=== PATIENT | female | born 1995 | race African-American/Black ===

== ENCOUNTER 2018-09-15 05:00 | Inpatient (IN) ==
[2018-09-15] MEDS ORDERED: ONDANSETRON 4 MG/2 ML VIAL IV PRN (05:20)
[2018-09-15] MEDS ORDERED: OXYTOCIN/LR 20 UNIT/1,000 ML BAG IV PRN (05:21)
[2018-09-15] MEDS: LACTATED RINGERS 1,000 ML IV SCH ×4 (05:32→22:35)
[2018-09-15] MEDS: BUTORPHANOL 2 MG/ML VIAL IV PRN ×2 (05:40→11:12)
[2018-09-15 05:59] LABS: Basophils % 0.2 % (0.0-0.8); Eosinophils % 0.5 % (0.00-10.9); Hematocrit 28.7 VOL% (35.7-47.0); Hemoglobin 8.7 GM/DL (12.0-16.0); Immature Granulocytes % 0.5 %; Immature Granulocytes Absolute 0.04 #; Lymphocytes # 2.7 10*3/uL (1.4-4.0); Lymphocytes % 30.4 % (21.3-54.2); Mean Corpuscular HGB Conc 30.3 GM/DL (32-36); Mean Corpuscular Hemoglobin 24 PG (27-34); Mean Corpuscular Volume 78.2 FL (87-102); Mean Platelet Volume 13.6 FL (9.6-12.0); Monocytes # 0.7 10*3/uL (0.11-0.8); Monocytes % 8.5 % (1.7-12.7); Neutrophils # 5.2 10*3/uL (1.4-7.4); Neutrophils % 59.9 % (38.7-73.9); Platelet Count 186 T/CUMM (130-400); Red Blood Count 3.67 MC/CUMM (3.8-5.5); Red Cell Distribution Width 14.5 % (9.3-17.3); White Blood Count 8.7 T/CUMM (4-12)
[2018-09-15 06:17] LABS: Albumin 2.9 G/DL (3.4-5.0); Bilirubin,Total 0.7 MG/DL (0.2-1.0); Calcium 8.1 MG/DL (8.5-10.1); Osmolality,Calculated 273.5 MOS/KG (273-304); Potassium 3.2 MMOL/L (3.5-5.1); Total Protein 7.3 G/DL (6.4-8.3)
[2018-09-15] MEDS ORDERED: FAMOTIDINE 20 MG/2 ML VIAL IV ONE (09:27)
[2018-09-15] MEDS ORDERED: CITRIC ACID/SODIUM CITRATE 30 ML UDCUP PO ONE (09:27)
[2018-09-15] MEDS ORDERED: hydrOXYzine HCL 25 MG/1 ML VIAL IM PRN (09:27)
[2018-09-15] MEDS ORDERED: ePHEDrine 50 MG/ML AMP IV PRN (09:27)
[2018-09-15] MEDS ORDERED: NALOXONE 0.4 MG/ML VIAL IV PRN (09:27)
[2018-09-15] MEDS ORDERED: PROMETHAZINE 25 MG/1 ML VIAL IM ONE (09:27)
[2018-09-15] MEDS ORDERED: diphenhydrAMINE 50 MG/1 ML VIAL IV PRN ×2 (09:27)
[2018-09-15] MEDS ORDERED: fentaNYL 2 MCG/ROPIV 0.2% EPID 100 ML EPIDURAL SCH (09:30)
[2018-09-15 12:30] LABS: Apearance,Urine CLEAR (Clear); Bilirubin,Urine Negative (Negative); Blood, Urine Negative (Negative); Glucose,Urine (UA) Negative (Negative); Ketones,Urine 5 mg/dL (Negative); Mucus,Urine Occasional /LPF (Occasional); Nitrite,Urine Negative (Negative); Protein,Urine Negative; Urine Color Yellow (Yellow); Urine Specific Gravity 1.009 (1.001-1.035)
[2018-09-15 12:35] LABS: Barbiturates Screen,Urine Negative (Negative); Benzodiazepines Screen,Urine Negative (Negative); Cannabinoid Screen,Urine Negative (Negative); Opiate Screen,Urine Negative (Negative); Phencyclidine Screen,Urine Negative (Negative)
[2018-09-15] MEDS ORDERED: miSOPROStol 200 MCG TABLET ONE (13:43)
[2018-09-15] MEDS ORDERED: LIDOCAINE 1% 50 ML VIAL ONE (13:43)
[2018-09-15] MEDS ORDERED: METHYLERGONOVINE 0.2 MG/1 ML AMP ONE (13:43)
[2018-09-15 14:04] LABS: Cord Venous Blood PO2 26.3 MMHG
[2018-09-15] MEDS ORDERED: ACETAMINOPHEN 325 MG TABLET PO SCH (17:09)
[2018-09-15] MEDS ORDERED: WITCH HAZEL PADS 100/JAR TOP PRN (17:09)
[2018-09-15] MEDS ORDERED: BENZOCAINE 20%/MENTHOL 0.5% SPRAY 56 GM CAN TOP PRN (17:09)
[2018-09-15] MEDS ORDERED: LANOLIN 50% CREAM 0.3 OZ TUBE TOP PRN (17:09)
[2018-09-15] MEDS ORDERED: MEASLES/MUMPS/RUBELLA VACCINE 0.5 ML VIAL SUBCUT ONE (17:09)
[2018-09-15] MEDS ORDERED: HYDROCORTISONE 2.5% RECTAL CREAM 30 GM TUBE TOP PRN (17:09)
[2018-09-15] MEDS ORDERED: RHO(D) IMMUNE GLOBULIN 300 MCG SYRINGE IM ONE (17:09)
[2018-09-15] MEDS ORDERED: DIPH/TET/ACEL PERT BOOSTER VACCINE 0.5 ML VIAL IM ONE (17:09)
[2018-09-15] MEDS ORDERED: BISACODYL 10 MG SUPP RECTAL PRN (17:09)
[2018-09-15] MEDS: KETOROLAC 30 MG/1 ML VIAL IV SCH ×2 (17:48→23:24)
[2018-09-15] MEDS: DOCUSATE SODIUM 100 MG CAPSULE PO SCH (21:09)
[2018-09-15] MEDS: FERROUS SULFATE 300 MG/5 ML UDCUP PO SCH (23:15)
[2018-09-15] MEDS: ACETAMINOPHEN 325 MG/10.15 ML UDCUP PO SCH (23:16)
[2018-09-16 06:06] LABS: Basophils % 0.2 % (0.0-0.8); Eosinophils % 0.2 % (0.00-10.9); Hematocrit 24.8 VOL% (35.7-47.0); Hemoglobin 7.6 GM/DL (12.0-16.0); Immature Granulocytes % 0.8 %; Immature Granulocytes Absolute 0.11 #; Lymphocytes # 2.6 10*3/uL (1.4-4.0); Lymphocytes % 18.7 % (21.3-54.2); Mean Corpuscular HGB Conc 30.6 GM/DL (32-36); Mean Corpuscular Hemoglobin 24 PG (27-34); Mean Corpuscular Volume 77.5 FL (87-102); Mean Platelet Volume 12.9 FL (9.6-12.0); Monocytes # 1.4 10*3/uL (0.11-0.8); Monocytes % 9.8 % (1.7-12.7); Neutrophils # 9.8 10*3/uL (1.4-7.4); Neutrophils % 70.3 % (38.7-73.9); Platelet Count 161 T/CUMM (130-400); Red Cell Distribution Width 14.5 % (9.3-17.3); White Blood Count 13.9 T/CUMM (4-12)
[2018-09-16] MEDS: LACTATED RINGERS 1,000 ML IV SCH ×2 (06:32→14:52)
[2018-09-16] MEDS: KETOROLAC 30 MG/1 ML VIAL IV SCH (06:36)
[2018-09-16] MEDS: ACETAMINOPHEN 325 MG/10.15 ML UDCUP PO SCH ×3 (06:36→18:08)
[2018-09-16] MEDS: DOCUSATE SODIUM 100 MG CAPSULE PO SCH ×2 (10:43→22:05)
[2018-09-16] MEDS: FERROUS SULFATE 300 MG/5 ML UDCUP PO SCH ×2 (10:49→21:53)
[2018-09-16] MEDS: MULTIVITAMIN LIQUID (CENTRUM) 60 ML BOTTLE PO SCH (10:49)
[2018-09-16] MEDS ORDERED: IBUPROFEN 800 MG TABLET PO SCH (14:30)
[2018-09-16] MEDS: IBUPROFEN 100 MG/5 ML UDCUP PO SCH (21:56)
[2018-09-17] MEDS: ACETAMINOPHEN 325 MG/10.15 ML UDCUP PO SCH ×2 (00:10→07:04)
[2018-09-17] MEDS: IBUPROFEN 100 MG/5 ML UDCUP PO SCH (04:41)
[2018-09-17 07:23] VITALS: BP 127/80
[2018-09-17] MEDS: MULTIVITAMIN LIQUID (CENTRUM) 60 ML BOTTLE PO SCH (09:51)
[2018-09-17] MEDS: FERROUS SULFATE 300 MG/5 ML UDCUP PO SCH (09:51)
[2018-09-17] MEDS: DOCUSATE SODIUM 100 MG CAPSULE PO SCH (09:51)
== END 2018-09-17 12:20 | disposition home or self-care (01) | DRG 560 ==
LOC: N.LDOUT 05:00 → N.LD 05:03 → N.OB 17:00
PROVIDERS: ADMIT Obstetrics & Gynecology; ATTEND Obstetrics & Gynecology